=== PATIENT | male | born 1970 | race African-American/Black ===

== ENCOUNTER 2017-03-25 10:45 | Emergency (ER) | payer OTHER ==
[~2017-03-25] VITALS: Ht 195.6 cm; Wt 90.7 kg
[~2017-03-25 10:45] MED LIST: CLEOCIN HCL150 MG PO; METFORMIN HCL500 MG PO; TRAMADOL 50 MG50 MG PO
[2017-03-25 12:09] VITALS: BP 190/102
== END 2017-03-25 12:52 | disposition home or self-care (01) ==
LOC: ER 10:45
DX: Z48.01 Encounter for change or removal of surgical wound dressing (principal); L02.511 Cutaneous abscess of right hand; F10.99 Alcohol use, unspecified with unspecified alcohol-induced disorder

== ENCOUNTER 2018-07-22 06:42 | Emergency (ER) | payer OTHER ==
[~2018-07-22] VITALS: Ht 195.6 cm; Wt 127.0 kg
[2018-07-22] MEDS ORDERED: TRAMADOL 50 MG50 MG PO (08:28)
[2018-07-22] MEDS ORDERED: NAPROSYN500 MG PO (08:28)
[2018-07-22 08:42] VITALS: BP 175/89
== END 2018-07-22 08:43 | disposition home or self-care (01) ==
LOC: ER 06:42
DX: S30.0XXA Contusion of lower back and pelvis, initial encounter (principal); W01.0XXA Fall on same level from slipping, tripping and stumbling without subsequent striking against object, initial encounter; Y93.E5 Activity, floor mopping and cleaning; Y92.89 Other specified places as the place of occurrence of the external cause; Y99.8 Other external cause status

== ENCOUNTER 2018-09-02 20:19 | Emergency (ER) | payer OTHER ==
[~2018-09-02] VITALS: Ht 195.6 cm; Wt 82.1 kg
[~2018-09-02 20:19] MED LIST changes: +NAPROSYN500 MG PO
[2018-09-02 20:55] LABS: BASOPHILS 0.7 % (0.0-2.0); HEMATOCRIT 32.5 % (42.0-52.0); HEMOGLOBIN 11.3 gm/dL (14.0-18.0); LYMPHOCYTES 23.2 % (24.0-44.0); MCH 32.6 pg (26.0-34.0); MCHC 34.9 g/dL (28.0-37.0); MCV 93.2 fL (80.0-100.0); MONOCYTES 8.6 % (1.0-8.0); PLATELET COUNT 394 thou/uL (150-400); POLYS 64.5 % (36.0-66.0); RBC 3.48 mil/uL (4.50-6.00); RDW 12.8 % (10.5-14.5); WBC 12.4 thou/uL (4.0-11.0)
[2018-09-02 21:03] LABS: CREATININE 1.3 mg/dL (0.7-1.3); POTASSIUM 3.8 mmol/L (3.5-5.1)
[2018-09-02] MEDS ORDERED: KEFLEX500 M1 PO (22:14)
[2018-09-02] MEDS ORDERED: AMLODIPINE BESY10 MG PO (22:14)
[2018-09-02] MEDS ORDERED: METFORMIN HCL500 M2 PO (22:14)
[2018-09-02] MEDS ORDERED: VITAMIN D5000 UNIT PO (22:21)
[2018-09-02] MEDS ORDERED: GLUCOSAMINE HC500 MG PO (22:24)
[2018-09-02 22:45] VITALS: BP 132/68
== END 2018-09-02 22:45 | disposition home or self-care (01) ==
LOC: ER 20:19
PROVIDERS: Student in an Organized Health Care Education/Training Program
DX: L03.031 Cellulitis of right toe (principal); E11.9 Type 2 diabetes mellitus without complications; I10 Essential (primary) hypertension

== ENCOUNTER 2019-10-05 14:37 | Emergency (ER) | payer OTHER ==
[~2019-10-05] VITALS: Ht 195.6 cm; Wt 106.6 kg
[~2019-10-05 14:37] MED LIST changes: +ACETAMINOPHEN325 M1 PO; +ALTACE5 MG PO; +AMLODIPINE BESY10 MG PO; +AUGMENTIN 875-1 EACH PO; +GLUCOSAMINE HC500 MG PO; +HYDROCODON-ACE1 EAC7 PO; +KEFLEX500 M1 PO; +METFORMIN HCL500 M2 PO; +VITAMIN D5000 UNIT PO
[2019-10-05 16:30] LABS: ABSOLUTE NEUTROPHILS 8.1 thou/uL (1.4-8.2); BASOPHILS 0.4 % (0.0-2.0); HEMATOCRIT 41.5 % (42.0-52.0); HEMOGLOBIN 13.7 gm/dL (14.0-18.0); LYMPHOCYTES 22.8 % (24.0-44.0); MCH 31.7 pg (26.0-34.0); MCHC 33.1 g/dL (28.0-37.0); MCV 95.7 fL (80.0-100.0); MONOCYTES 7.7 % (1.0-8.0); PLATELET COUNT 280 thou/uL (150-400); POLYS 68.1 % (36.0-66.0); RBC 4.34 mil/uL (4.50-6.00); RDW 12.7 % (10.5-14.5); WBC 11.9 thou/uL (4.0-11.0)
[2019-10-05 16:36] LABS: ANION GAP 7 mmol/L (7-16); BUN 13 mg/dL (7-18); CALCIUM 9.5 mg/dL (8.5-10.1); CHLORIDE 105 mmol/L (98-107); CO2 30 mmol/L (21-32); CREATININE 1.5 mg/dL (0.7-1.3); GLUCOSE 126 mg/dL (74-106); POTASSIUM 3.8 mmol/L (3.5-5.1); SODIUM 142 mmol/L (136-145)
[2019-10-05 16:46] LABS: ALBUMIN 4.1 g/dL (3.4-5.0); SGOT 14 U/L (15-37); SGPT 23 U/L (30-65); TOTAL BILIRUBIN 0.8 mg/dL (<0.1-1.0); TROPONIN-I <0.06 ng/mL (<0.06)
--- NOTE | 2019-10-05 16:50 | EKG ---
[facility] [place] [place] [address] ELECTROCARDIOGRAM REPORT Name: WILLIAM NARAYAN [id number] Admission: 10/05/19 Attend Phys: Discharge: Date of : 70 Report #: [id number] THIS REPORT FOR: //name// [facility] ED Test Date: 2019-10-05 Test Time: 14:43:16 Pat Name: WILLIAM NARAYAN Department: Room: Gender: Supervisor Fitting: RAY : 1970 Requested By: Shanon Atkins Order Number: [id number] MD: Raymond Pandya Measurements Intervals [place] Rate: 102 P: 55 ND: 132 QRS: 62 QRSD: 134 T: -84 QT: 320 QTc: 417 Interpretive Statements Sinus tachycardia Probable left ventricular hypertrophy Nonspecific ST and T wave abnormality No previous ECG available for comparison Electronically Signed On 10-05-2019 16:49:42 [employer]END[employer] by aRymond Pandya [email or web address] <ELECTRONICALLY SIGNED> By: Raymond Pandya MD, [facility] 10/05/19 1649 1443 1443 Raymond Pandya MD, FACC /EPI
[2019-10-05] MEDS ORDERED: MOBIC7.5 MG PO (18:02)
[2019-10-05 18:30] VITALS: BP 185/102
== END 2019-10-05 19:24 | disposition home or self-care (01) ==
LOC: ER 14:37
PROVIDERS: Physician Assistant
DX: R09.1 Pleurisy (principal); R07.89 Other chest pain; I10 Essential (primary) hypertension; E11.9 Type 2 diabetes mellitus without complications

== ENCOUNTER 2019-12-01 10:01 | Emergency (ER) | payer OTHER ==
[~2019-12-01] VITALS: Ht 195.6 cm; Wt 95.3 kg
[~2019-12-01 10:01] MED LIST changes: +MOBIC7.5 MG PO
[2019-12-01 10:32] LABS: URINE BILIRUBIN NEGATIVE (Negative); URINE BLOOD NEGATIVE (Negative); URINE CLARITY CLEAR; URINE COLOR YELLOW; URINE GLUCOSE-RANDOM* 1+ (Negative); URINE KETONES NEGATIVE (Negative); URINE LEUKOCYTES-REFLEX NEGATIVE (Negative); URINE NITRITE-REFLEX NEGATIVE (Negative); URINE PROTEIN (DIPSTICK) NEGATIVE (Negative)
[2019-12-01 10:36] LABS: BASOPHILS 0.5 % (0.0-2.0); HEMATOCRIT 42.4 % (42.0-52.0); HEMOGLOBIN 13.9 gm/dL (14.0-18.0); LYMPHOCYTES 33.1 % (24.0-44.0); MCH 31.8 pg (26.0-34.0); MCHC 32.8 g/dL (28.0-37.0); MONOCYTES 5.3 % (1.0-8.0); PLATELET COUNT 326 thou/uL (150-400); POLYS 58.1 % (36.0-66.0); RBC 4.37 mil/uL (4.50-6.00); RDW 12.8 % (10.5-14.5); WBC 8.5 thou/uL (4.0-11.0)
[2019-12-01 10:46] LABS: CALCIUM 8.7 mg/dL (8.5-10.1); CREATININE 1.1 mg/dL (0.7-1.3); POTASSIUM 3.9 mmol/L (3.5-5.1)
[2019-12-01 10:52] LABS: ALBUMIN 3.7 g/dL (3.4-5.0); TOTAL BILIRUBIN 1.1 mg/dL (<0.1-1.0); TOTAL PROTEIN 7.4 g/dL (6.4-8.2)
[2019-12-01 12:29] VITALS: BP 194/97
== END 2019-12-01 12:30 | disposition home or self-care (01) ==
LOC: ER 10:01
PROVIDERS: Emergency Medicine
DX: R10.31 Right lower quadrant pain (principal); R19.7 Diarrhea, unspecified; R42 Dizziness and giddiness; R50.9 Fever, unspecified; E11.9 Type 2 diabetes mellitus without complications; I10 Essential (primary) hypertension; Z98.890 Other specified postprocedural states; Z79.899 Other long term (current) drug therapy

== ENCOUNTER 2020-04-18 14:56 | Emergency (ER) | payer OTHER ==
[~2020-04-18] VITALS: Ht 195.6 cm; Wt 98.4 kg
[2020-04-18 17:05] VITALS: BP 175/96
== END 2020-04-18 17:05 | disposition home or self-care (01) ==
LOC: ER 14:56
DX: R50.9 Fever, unspecified (principal); Z20.828 Contact with and (suspected) exposure to other viral communicable diseases; J02.9 Acute pharyngitis, unspecified; R05 Cough; R10.9 Unspecified abdominal pain; R53.83 Other fatigue; E11.9 Type 2 diabetes mellitus without complications; I10 Essential (primary) hypertension; Z98.890 Other specified postprocedural states

== ENCOUNTER 2020-07-27 09:42 | Emergency (ER) | payer OTHER ==
[~2020-07-27] VITALS: Ht 195.6 cm; Wt 124.7 kg
[2020-07-27 13:48] VITALS: BP 149/68
== END 2020-07-27 13:49 | disposition home or self-care (01) ==
LOC: ER 09:42
DX: B34.9 Viral infection, unspecified (principal); I10 Essential (primary) hypertension; E11.9 Type 2 diabetes mellitus without complications; F17.210 Nicotine dependence, cigarettes, uncomplicated; Z20.828 Contact with and (suspected) exposure to other viral communicable diseases

== ENCOUNTER 2020-11-06 09:52 | Emergency (ER) | payer OTHER ==
[~2020-11-06] VITALS: Ht 195.6 cm; Wt 113.4 kg
[2020-11-06 11:00] LABS: URINE BILIRUBIN NEGATIVE (Negative); URINE BLOOD TRACE (Negative); URINE CLARITY CLEAR; URINE COLOR YELLOW; URINE GLUCOSE-RANDOM* TRACE (Negative); URINE KETONES NEGATIVE (Negative); URINE LEUKOCYTES-REFLEX NEGATIVE (Negative); URINE NITRITE-REFLEX NEGATIVE (Negative); URINE PROTEIN (DIPSTICK) NEGATIVE (Negative)
[2020-11-06 11:02] LABS: ABSOLUTE NEUTROPHILS 7.4 thou/uL (1.4-8.2); BASOPHILS 0.4 % (0.0-2.0); EOSINOPHILS 2.7 % (0.0-3.0); HEMATOCRIT 42.1 % (42.0-52.0); HEMOGLOBIN 13.9 gm/dL (14.0-18.0); LYMPHOCYTES 23.6 % (24.0-44.0); MCH 32.4 pg (26.0-34.0); MCHC 32.9 g/dL (28.0-37.0); MCV 98.3 fL (80.0-100.0); MONOCYTES 5.1 % (1.0-8.0); PLATELET COUNT 316 thou/uL (150-400); POLYS 68.2 % (36.0-66.0); RBC 4.29 mil/uL (4.50-6.00); RDW 12.6 % (10.5-14.5); WBC 10.9 thou/uL (4.0-11.0)
[2020-11-06 11:07] LABS: CALCIUM 8.9 mg/dL (8.5-10.1); CREATININE 1.1 mg/dL (0.7-1.3); POTASSIUM 4.2 mmol/L (3.5-5.1)
[2020-11-06 11:16] LABS: ALBUMIN 3.8 g/dL (3.4-5.0); DIRECT BILIRUBIN 0.1 mg/dL (<0.1-0.2); TOTAL BILIRUBIN 0.6 mg/dL (0.2-1.0); TOTAL PROTEIN 7.4 g/dL (6.4-8.2)
[2020-11-06] MEDS ORDERED: MOBIC15 MG PO (13:00)
[2020-11-06 13:12] VITALS: BP 191/92
== END 2020-11-06 13:12 | disposition home or self-care (01) ==
LOC: ER 09:52
PROVIDERS: Emergency Medicine
DX: K80.20 Calculus of gallbladder without cholecystitis without obstruction (principal); I10 Essential (primary) hypertension; E11.9 Type 2 diabetes mellitus without complications; F17.210 Nicotine dependence, cigarettes, uncomplicated